=== PATIENT | male | born 1965 | race Caucasian/White ===

== ENCOUNTER → 2023-05-31 07:54 | Day surgery (SDC) | payer OTHER, SELFPAY | LOC: GI 07:54 | PROVIDERS: ATTENDING PHYSICIAN Internal Medicine Gastroenterology | DX: Z12.11 Encounter for screening for malignant neoplasm of colon (principal); K64.8 Other hemorrhoids; Z87.19 Personal history of other diseases of the digestive system | CPT/HCPCS: G0121 ==

== ENCOUNTER → 2024-10-05 09:57 | Outpatient (REF) | payer OTHER, SELFPAY | LOC: RAD 09:57 | PROVIDERS: ATTENDING PHYSICIAN Physician Assistant | DX: E78.2 Mixed hyperlipidemia (principal); M54.50 Low back pain, unspecified | CPT/HCPCS: 72110; 93880 ==

== ENCOUNTER → 2024-10-09 09:10 | Outpatient (REF) | payer OTHER, SELFPAY | LOC: HWRAD 09:10 | PROVIDERS: ATTENDING PHYSICIAN Physician Assistant | DX: E78.2 Mixed hyperlipidemia (principal); Z87.891 Personal history of nicotine dependence | CPT/HCPCS: 71271; 75571 ==